=== PATIENT | male | born 2005 | race Caucasian/White ===

== ENCOUNTER 2023-11-02 22:05 | Emergency (ER) | payer OTHER ==
[~2023-11-02] VITALS: Ht 177.8 cm; Wt 72.7 kg
[2023-11-02 22:14] VITALS: BP 129/72; PULSE 59; RESP 15; TEMP 98.1
== END 2023-11-03 00:28 | disposition left against medical advice (07) ==
LOC: EMS 22:05
DX: R11.2 Nausea with vomiting, unspecified (principal); Z53.21 Procedure and treatment not carried out due to patient leaving prior to being seen by health care provider
CPT/HCPCS: 99281; Z7502